=== PATIENT | male | born 2005 | race Caucasian/White ===

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

== ENCOUNTER 2023-10-20 17:02 | Emergency (ER) | payer OTHER, SELFPAY ==
[2023-10-20 17:51] VITALS: BP 119/67; PULSE 76; RESP 16; TEMP 36.5; O2SAT 97; BMI 31.3
[2023-10-20 19:24] VITALS: BP 127/76; PULSE 57; RESP 16; TEMP 36.6; O2SAT 99
--- NOTE | 2023-10-20 20:25 | ED.EAR ---
HPI - Ear Problem General Chief complaint: Ear Problems Stated complaint: ear infection Time Seen by Provider: 10/20/23 19:19 Source: patient Mode of arrival: ambulatory Limitations: no limitations History of Present Illness ED Provider: Ronald SPENCER HPI Narrative: 18-year-old male presents with bilateral ear fullness for the past 4 days. Reports now ears are aching bilaterally. Denies fevers, chills, numbness, tingling, headache, vision changes, neck pain. Reports he has had to have his ears irrigated before due to cerumen impaction. He thinks he may have a lymph node in the left submandibular region however he is not sure. He does state that his wisdom teeth are growing and he knew he might need to get them removed. Related Data Previous Rx's ?Medication ?Instructions ?Recorded prednisone 20 mg tablet 40 mg (2 x 20 mg) PO DAILY #10 tabs 06/23/21 amoxicillin 875 mg-potassium 1 tab PO BID 7 days #14 tabs 10/20/23 clavulanate 125 mg tablet Allergies Allergy/AdvReac Type Severity Reaction Status Date / Time No Known Allergies Allergy Verified 10/20/23 17:55 [No Known Allergies*] Review of Systems Review of Systems: Yes all other systems are reviewed and are negative PMFSH Past Medical History Attestation statement: The following information was validated with the patient. Source: old records reviewed and nursing notes reviewed Medical History Asthma Social History Social History Advance Directives: No Advance Directives Information Provided: No Physical Exam Vital Signs: Vital Signs: Last Vital Signs Temp 97.8 F 10/20/23 19:24 Pulse 57 10/20/23 19:24 Resp 16 10/20/23 19:24 BP 127/76 10/20/23 19:24 Pulse Ox 99 10/20/23 19:24 O2 Del Method Room Air 10/20/23 19:24 BMI result Body Mass Index 31.3 vss Appearance: Alert.? Oriented X3.? No acute distress.? Head: Normocephalic, atraumatic, no step-offs or deformities Eyes: Pupils equal, round and reactive to light.? ENT: Pharynx normal.? Bilateral cerumen impaction. No pain with external manipulation of ears. Unable to visualize tympanic membrane bilaterally. Neck: Normal inspection.? Neck supple.? Small left submental lymphadenopathy mobile. CVS: Normal heart rate and rhythm.? Pulses normal.? Respiratory: No respiratory distress.? Breath sounds normal.? Abdomen: Soft and nontender.? Skin: Skin warm and dry.? Normal skin color.? Normal skin turgor.? Extremities: No lower extremity edema.? No calf ttp. 5/5 strength to bilateral upper and lower extremities Back: No midline tenderness, no C-spine tenderness, full range of motion, no CVA tenderness bilaterally Neuro: Oriented X 3.? No motor deficit.? No sensory deficit. CN 2-12 intact Course Reevaluation(s) Reevaluation #1: Bilateral ear irrigation with water, successful, moderate amount of cerumen expressed. Able to visualize tympanic membrane left tympanic membrane erythematous and bulging consistent with otitis media. Right tympanic membrane normal. No pain with external manipulation of bilateral ears. No mastoid tenderness. Patient will be discharged on Augmentin for otitis media. Time: 21:12 Medications Administered Discontinued Medications Generic Name Dose Route Start Last Admin Trade Name Freq PRN Reason Stop Dose Admin Docusate Sodium 100 mg 10/20/23 20:08 10/20/23 20:28 Docusate Sodium 100 Mg/10 Ml Liquid PO 10/20/23 20:09 100 mg ONCE ONE Administration Medical Decision Making Medical Decision Making [facility] Narrative: 2025 18 year old male presents w/ b/l ear fullness X 4 days. Now experiencing slight aching to b/l ears. PE w/ Pharynx normal.? Bilateral cerumen impaction. No pain with external manipulation of ears. Unable to visualize tympanic membrane bilaterally. History and physical exam concerning for bilateral cerumen impaction. Will rule out otitis media after irrigation. I do not suspect otitis externa, mastoiditis, meningitis, encephalitis. Lymph node could be reactive to wisdom teeth that are currently growing in. Unlikely infectious in origin. Low suspicion for malignancy Plan irrigation with water Differential Diagnosis Differential Diagnoses: The differential diagnosis associated with the presentation includes History and physical exam concerning for bilateral cerumen impaction. Will rule out otitis media after irrigation. I do not suspect otitis externa, mastoiditis, meningitis, encephalitis. Lymph node could be reactive to wisdom teeth that are currently growing in. Unlikely infectious in origin. Low suspicion for malignancy Admission/Observation Consideration of admission/observation: Escalation of care including admission/observation considered [facility] Critical Care Time Critical Care Time Critical Care Time: No Discharge Plan Discharge Clinical Impression: Cerumen impaction, Otitis media Patient Disposition: Home, Self-Care Instructions: Ear Infection (ED) Additional Instructions: Take your medications as prescribed. If you were prescribed antibiotics today, it is important that you take your medication to their entirety, do not skip any doses, do not finish them early. Follow-up with your primary care provider this week. Return to the emergency department with new or worsening symptoms. Such as fevers, chills, chest pain, shortness of breath, nausea, vomiting, dizziness, headache, vision changes, lethargy In case of emergency call 911 Prescriptions: New amoxicillin-pot clavulanate 875-125 mg tablet 1 tab PO BID 7 Days Qty: 14 0RF No Action prednisone 20 mg tablet 40 mg PO DAILY Qty: 10 0RF Referrals: Physician,Unknown J [Primary Care Provider] - 3 days Stand Alone Forms: Work/School Release Print Language: Lao
[2023-10-20] MEDS: Docusate Sodium 100 MG/10 ML LIQUID PO (20:28)
[2023-10-20 21:23] VITALS: BP 127/76; PULSE 57; RESP 16; TEMP 36.6; O2SAT 99
== END 2023-10-20 21:23 | disposition home or self-care (01) ==
PROVIDERS: Emergency Provider Emergency Medicine
DX: H66.92 Otitis media, unspecified, left ear (principal); H61.23 Impacted cerumen, bilateral
CPT/HCPCS: 69209; 99282; 99283

== ENCOUNTER 2024-04-22 11:44 | Emergency (ER) | payer OTHER, SELFPAY ==
[2024-04-22 12:13] VITALS: BP 110/79; PULSE 64; RESP 19; TEMP 36.6; O2SAT 98; BMI 29.1
--- NOTE | 2024-04-22 12:16 | ED_ITS ---
HPI - URI/Sore Throat General Chief Complaint: Upper Respiratory Symptoms Stated Complaint: Flu Symptoms Time Seen by Provider: 04/22/24 17:28 History of Present Illness HPI Narrative: Patient complains of runny nose body aches mild headache bilateral ear pain, sore throat and a cough for the past several days The cough started out worse but now is almost better, denies sputum, no shortness of breath no chest pain The sore throat he can eat but it hurts a little bit, there is no stiff neck, no nausea vomiting or diarrhea no dysuria no rash no abdominal pain Related Data Previous Rx's ?Medication ?Instructions ?Recorded prednisone 20 mg tablet 40 mg (2 x 20 mg) PO DAILY #10 tabs 06/23/21 amoxicillin 875 mg-potassium 1 tab PO BID 7 days #14 tabs 10/20/23 clavulanate 125 mg tablet Allergies Allergy/AdvReac Type Severity Reaction Status Date / Time No Known Allergies Allergy Verified 04/22/24 12:14 [No Known Allergies*] [facility] Past Medical History Source: nursing notes reviewed Medical History Asthma Social History Social History Advance Directives: No Advance Directives Information Provided: No Do you have a plan to hurt others: No Plan Physical Exam Vital Signs: Vital Signs: Last Vital Signs Temp 98 F 04/22/24 12:13 Pulse 64 04/22/24 12:13 Resp 19 04/22/24 12:13 BP 110/79 04/22/24 12:13 Pulse Ox 98 04/22/24 12:13 O2 Del Method Room Air 04/22/24 12:13 BMI result Body Mass Index 29.1 General appearance comfortable no distress Eyes no redness or discharge The ears, both tympanic membranes normal without redness or bulging, canals were normal Sinuses nontender The pharynx is clear without redness swelling or exudate membranes moist Neck is supple Chest clear to auscultation full symmetrical breath sounds no wheezing Abdomen soft nontender Extremities range motion x4 Skin no rash Course Course Course Narrative: This is an RME: Additional HPI, ROS, PE not included below will be deferred to primary provider. RME assessment and note performed by: Judy Aldana PA-C This is a 19-year-old male who presents emergency department with complaints of cough, body aches, headaches, left ear pain and sore throat the last 2 days. Vital signs within normal limits. Plan: Viral swabs, strep swab COVID flu and strep tests all negative Patient's exam was normal Patient's main concern was he wanted to speak check with so many people at work were sick with the flu Patient who is comfortable and well-appearing with negative COVID and flu test is discharged Medical Decision Making Lab Data MDM Lab Attestation statement: I reviewed the patient's lab results. Labs: Lab Results 04/22/24 Range/Units 14:43 Influenza Type A (PCR) NEGATIVE (Negative) Influenza Type B (PCR) NEGATIVE (Negative) RSV RNA Qual (PCR) NEGATIVE (Negative) SARS-CoV-2 RNA (RT-PCR) NEGATIVE (Negative) S. pyogenes GrpA JEN Negative (Negative) Discharge Plan Discharge Clinical Impression: Viral illness Patient Disposition: Home, Self-Care Additional Instructions: Test for COVID flu strep throat were all negative Your exam and vital signs were all normal, no sign of any dangerous or serious illness Most viral illness last so we had to 10 days, drink plenty of fluids Tylenol or Motrin as needed Return any time any worse condition or any concerns Prescriptions: No Action prednisone 20 mg tablet 40 mg PO DAILY Qty: 10 0RF amoxicillin-pot clavulanate 875-125 mg tablet 1 tab PO BID 7 Days Qty: 14 0RF Stand Alone Forms: Work/School Release Print Language: Palestinian
[2024-04-22 14:57] LABS: IDNOW Serial# 08D9AD1C; Strep A Nucleic Acid Negative (Negative)
[2024-04-22 15:28] LABS: Influenza A PCR NEGATIVE (Negative); Influenza B PCR NEGATIVE (Negative); Resp Syncy Virus RNA Qual PCR NEGATIVE (Negative); SARS COV2 PCR INHOUSE NEGATIVE (Negative)
[2024-04-22 17:49] VITALS: BP 110/79; PULSE 64; RESP 19; TEMP 36.6; O2SAT 98
== END 2024-04-22 17:50 | disposition home or self-care (01) ==
PROVIDERS: Physician Assistant Medical; Emergency Provider Emergency Medicine
DX: B34.9 Viral infection, unspecified (principal); M79.10 Myalgia, unspecified site; R51.9 Headache, unspecified; H92.03 Otalgia, bilateral; Z03.818 Encounter for observation for suspected exposure to other biological agents ruled out
CPT/HCPCS: 0241U; 87651; 99282; 99283

== ENCOUNTER 2024-09-25 19:44 | Emergency (ER) | payer SELFPAY ==
[2024-09-25 19:54] VITALS: BP 129/78; PULSE 87; RESP 18; TEMP 36.6; O2SAT 98; BMI 28.0
--- NOTE | 2024-09-25 19:59 | ED.GENADULT ---
HPI - General Adult General Chief complaint: Eye Problems Stated complaint: unable to see w/o glasses, needs note for work Time Seen by Provider: 09/25/24 19:59 Source: patient, RN notes reviewed and old records reviewed Mode of arrival: ambulatory Limitations: no limitations History of Present Illness ED Provider: Barak [facility] narrative: Patient is a 19-year-old male presenting to the ED stating that he recently broke his glasses and can only see very little without them. 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 He denies any pain or new changes in vision. He is attempting to set up an appointment with an body and fender mechanic apprentice. MD complaint: vision impairment Related Data Previous Rx's ?Medication ?Instructions ?Recorded prednisone 20 mg tablet 40 mg (2 x 20 mg) PO DAILY #10 tabs 06/23/21 amoxicillin 875 mg-potassium 1 tab PO BID 7 days #14 tabs 10/20/23 clavulanate 125 mg tablet Allergies Allergy/AdvReac Type Severity Reaction Status Date / Time No Known Allergies (No Known Allergy Verified 09/25/24 20:01 Allergies*) Review of Systems Review of Systems: as per hpi Yes all other systems are reviewed and are negative Constitutional: Constitutional: Reports as per HPI [facility] Past Medical History Medical History Asthma Social History Social History Do you have a plan to hurt others: No Plan Physical Exam ED Vital Signs: Vital Signs - 24 hr 09/25/24 19:54 Temperature 97.9 F Pulse Rate 87 Respiratory Rate 18 Blood Pressure 129/78 Pulse Oximetry 98 Oxygen Delivery Method Room Air BMI result Body Mass Index 28.0 Vital signs have been reviewed and appear to be correct. Blood pressure normal. Heart rate normal. Respiratory rate normal. Temperature normal. Oxygen saturation normal. Const General: cooperative, healthy appearing and no acute distress Orientation/consciousness: oriented to person, oriented to place, oriented to time and patient oriented x3 Limitations: no limitations HENMT Head: Yes normocephalic and Yes atraumatic Ears: external ears normal General nose exam: Normal external nose present Face and sinus: Yes face symmetric Mouth: oropharynx normal and moist mucous membranes Throat: Yes uvula midline Eyes General: appearance normal, both eyes and all related structures Visual Corbett: normal visual corbett by confrontation Alignment and Position: alignment normal and position normal Periorbital: periorbital findings normal Eyelids: Yes eyelids normal Conjunctivae: conjunctivae normal Sclerae: sclerae normal Corneas: corneas normal Pupils: Equal, round and reactive pupils present EOM: EOMs intact bilaterally Neck Neck: Yes normal visual inspection and Yes supple Resp Effort & Inspection: normal respiratory effort and able to speak in complete sentences Auscultation: clear to auscultation bilaterally Cardio Rate: regular rate Rhythm: regular rhythm Heart sounds: S1 normal heart sound present and S2 normal heart sound present GI Palpation (GI): Soft to palpation and nontender Auscultation: normoactive bowel sounds General: Yes no CVA tenderness Back/Spine/Pelvis Back: no CVA tenderness Skin General skin exam: elasticity normal and turgor normal Neuro General: oriented to person, oriented to place, oriented to time, patient oriented x3, moves all extremities, no focal motor deficits and CN's II-XI intact bilaterally Cranial nerves: Yes Equal, round and reactive pupils present Cognition (Neuro): normal cognition Extrem General: Yes full ROM, Yes no pedal edema and Yes no calf tenderness Psych Mental Status: mental status grossly normal Affect: normal affect Thought process: Normal thought process present Medical Decision Making Medical Decision Making [facility] Narrative: Patient is a 19-year-old male presenting to the ED stating that he recently broke his glasses and can only see very little without them. On exam patient is awake, A+Ox3, VS WNL, afebrile, normal neurological exam without focal deficits, physical exam findings as above. Given reported symptoms and physical exam findings, initial differential includes but is not limited to impaired vision. Visual acuity noted to be 20/200 bilaterally. Discussed with patient options for ophthalmologic exams such as [facility], [employer], etc. Will also provide with information for Dr. Jackson's office. Will give note to excuse him from work until he is able to obtain new glasses as he should not be driving without vision correction, patient advised of this as well. Return precautions discussed. Patient verbalized understanding of and agreement with plan. Differential Diagnosis Differential Diagnoses: The differential diagnosis associated with the presentation includes as per [facility] External Record Review External record reviewed: Inpatient record, Office record and Outpatient record Discharge Plan Discharge Clinical Impression: Impaired vision in both eyes Patient Disposition: Home, Self-Care Additional Instructions: You were evaluated in the emergency department today for impaired vision due to broken glasses. Schedule an appointment with an technical sourcing recruiter/body and fender mechanic apprentice as soon as possible for a new vision exam so you can get a new pair of glasses. YOU SHOULD NOT DRIVE UNTIL YOU ARE ABLE TO OBTAIN A NEW PAIR OF GLASSES. Return to the emergency department with new or concerning symptoms. Prescriptions: No Action prednisone 20 mg tablet 40 mg PO DAILY Qty: 10 0RF amoxicillin-pot clavulanate 875-125 mg tablet 1 tab PO BID 7 Days Qty: 14 0RF Referrals: [facility] [Physician, Ophthalmology] Stand Alone Forms: Work/School Release Print Language: Guyanese
== END 2024-09-25 21:24 | disposition home or self-care (01) ==
PROVIDERS: Emergency Provider Emergency Medicine Emergency Medical Services
DX: H53.8 Other visual disturbances (principal)
CPT/HCPCS: 99282